=== PATIENT | female | born 1985 | race Caucasian/White ===

== ENCOUNTER 2022-05-30 09:29 | Emergency (ER) | payer OTHER, SELFPAY ==
[2022-05-30 09:46] VITALS: BP 122/87; PULSE 98; RESP 18; TEMP 36.6; O2SAT 98; BMI 24.0
[2022-05-30 10:01] VITALS: BP 135/88; PULSE 75; RESP 15; O2SAT 100
--- OUTSIDE RECORDS SUMMARY | 2022-05-30 10:08 | XMS_ITS | Continuity of Care Document ---
:1985 Author Organization [facility] Address [address] [place] [address]- Care Team Providers Name Role Phone Not on Staff, PCP Primary Care Physician Unavailable [place] [facility] [place]06[place] - 08/13/[address] [id number] Attending Physician: Pat Dumont PsyD Admitting Physician: Pat Dumont PsyD Allergies, Adverse Reactions, Alerts No Known Allergies Medications capsaicin 0.025% topical cream 1 application, Topically, 2 times a day, PRN Pain , Mild, # 60 Gm, 1 Refills, Maintenance, 08/01/21 11:43:00 EDT, Cream, [facility] #[id number], Partial fill upon patient request if the prescription is for a schedule II opioid drug., 1 applicatio... Start Date: 08/01/21 Status: Orderednaproxen 500 mg oral tablet 1 tablet = 500 mg, By Mouth, 2 times a day, PRN Pain , Mild, # 60 tablet, 1 Refills, Maintenance, 08/01/21 11:42:00 EDT, Tablet, [facility] #[id number], Partial fill upon patient request if the prescription is for a schedule II opioid drug., 160.... Start Date: 08/01/21 Status: Ordered Problem List Condition Effective Dates Status Health Status Informant Cervical incompetence(Confirmed) Active History of delivery(Confirmed) Active Threatened (Confirmed) Active Social History Social History Type Response Smoking Status Never (less than 100 in life time) entered on: 08/01/21 Sex
--- OUTSIDE RECORDS SUMMARY | 2022-05-30 10:09 | XMS_ITS | Continuity of Care Document ---
:1985 Author Organization [facility] Address [address] [place] [address]- Care Team Providers Name Role Phone Not on Staff, PCP Primary Care Physician Unavailable Encounter [facility] Date(s): 06/30/19 - 06/30/[address] [address]- [facility] Attending Physician: José Luis Castillo MD Allergies, Adverse Reactions, Alerts Substance Reaction Severity Status NKA Active Medications amoxicillin-clavulanate 500 mg-125 mg oral tablet By Mouth, Every 8 hours, 0 Refills, Maintenance, 01/27/19 1:28:53 EDT Start Date: 01/27/19 Status: OrderedColace sodium 100 mg oral capsule 100 mg, 1, capsule, By Mouth, 2 times a day, PRN, # 30 capsule, Refills 2, Tot. Refills 2, Maintenance, for constipation, 11/04/15 21:10:49, Route to Pharmacy Electronically, [id number], [facility] [id number] Start Date: 11/04/15 Status: Orderedferrous sulfate 325 mg oral tablet 1 tablet = 325 mg, By Mouth, 3 times a day, # 270 tablet, 0 Refills, Maintenance, 09/30/15 0:09:05, Tablet Start Date: 09/30/15 Status: Orderedibuprofen 600 mg oral tablet 600 mg, 1, tablet, By Mouth, Every 6 hours, # 30 tablet, Refills 0, Tot. Refills 0, Maintenance, 06/24/17 13:24:44, Print Requisition Start Date: 06/24/17 Status: Orderedindocin 25mg q6h prn indocin 25mg q6h prn, See Instructions, # 10 tablet, Refills 0, Tot. Refills 0, Maintenance, to takeas needed for contractions, 10/20/15 10:37:20, Compound Start Date: 10/20/15 Status: OrderedPrenatal Multivitamins By Mouth, Daily, 0 Refills, Maintenance, 09/30/15 0:09:18 Start Date: 09/30/15 Status: OrderedPrometrium 200 mg oral capsule 1 capsule = 200 mg, By Mouth, Daily, # 10 capsule, 0 Refills, Maintenance, 05/20/19 9:03:00 EST, Capsule Start Date: 05/20/19 Stop Date: 05/30/19 Status: Orderedsee special instructions see special instructions, See Instructions, # 10 tablet, Refills 0, Tot. Refills 0, Maintenance, 25 mg By Mouth every 6 hours prn for contractions, 10/20/15 10:33:58, Compound Start Date: 10/20/15 Status: OrderedVitamin D 82226 iu oral capsule 50,000 International_Units, 1, capsule, By Mouth, Every week, Refills 0, Maintenance, 09/30/15 0:08:34 Start Date: 09/30/15 Status: Ordered Problem List Condition Effective Dates Status Health Status Informant Cervical incompetence(Confirmed) Active History of delivery(Confirmed) Active Threatened (Confirmed) Active Social History Social History Type Response Smoking Status Never smoker entered on: 07/01/15 Sex
--- OUTSIDE RECORDS SUMMARY | 2022-05-30 10:09 | XMS_ITS | Continuity of Care Document ---
:1985 Author Organization [facility] Address [address] [place] [address]- Care Team Providers Name Role Phone Not on Staff, PCP Primary Care Physician Unavailable Encounter [facility] Date(s): 08/08/19 - 08/08/[address] [address]- [facility] Discharge Disposition: A-D/C Home Attending Physician: José Luis Castillo MD Admitting Physician: José Luis Castillo MD Referring Physician: José Luis Castillo MD Allergies, Adverse Reactions, Alerts Substance Reaction Severity Status NKA Active Medications amoxicillin-clavulanate 500 mg-125 mg oral tablet By Mouth, Every 8 hours, 0 Refills, Maintenance, 01/27/19 1:28:53 EDT Start Date: 01/27/19 Status: OrderedAugmentin 250 mg-62.5 mg/5 ml oral powder for reconstitution 10 mL, By Mouth, Every 8 hours, # 210 mL, 0 Refills, Maintenance, 07/01/19 9:03:00 EST, REC Powder, [facility] #[id number], 160, cm, 06/28/19 18:21:00 EST, Height, 63.3, kg, 04/07/19 11:54:00 EST,Dry Weight Start Date: 07/01/19 Stop Date: 07/08/19 Status: OrderedColace sodium 100 mg oral capsule 100 mg, 1, capsule, By Mouth, 2 times a day, PRN, # 30 capsule, Refills 2, Tot. Refills 2, Maintenance, for constipation, 11/04/15 21:10:49, Route to Pharmacy Electronically, [id number], [facility] [address] Start Date: 11/04/15 Status: Orderedferrous sulfate 325 [...] Compound Start Date: 10/20/15 Status: OrderedVitamin D 66726 iu oral capsule 50,000 International_Units, 1, capsule, By Mouth, Every week, Refills 0, Maintenance, 09/30/15 0:08:34 Start Date: 09/30/15 Status: Ordered Problem List Condition Effective Dates Status Health Status Informant Cervical incompetence(Confirmed) Active History of delivery(Confirmed) Active Threatened (Confirmed) Active Vital Signs Most recent to oldest [Reference Range]: 1 Height 160 cm (08/08/19 7:40 AM) Weight 74.3 kg (08/08/19 7:40 AM) Pulse Rate [55-90 bpm] 98 bpm *H* (08/08/19 7:40 AM) Body Mass Index [18.5-24.99] 29.02 *H* (08/08/19 7:40 AM) Blood Pressure [90-138/55-84 mm Hg] 120/84 mm Hg (08/08/19 7:40 AM) Respiratory Rate [16-30 br/min] 18 br/min (08/08/19 7:40 AM) Temperature [96.8-100.4 DegF] 98.1 DegF (08/08/19 7:40 AM) Blood pressure sites Arm, right (08/08/19 7:40 AM) Temperature Route Oral (08/08/19 7:40 AM) Dry Weight 74.3 kg (08/08/19 7:40 AM) Social History Social History Type Response Smoking Status Never smoker entered on: 07/01/15 Sex
--- OUTSIDE RECORDS SUMMARY | 2022-05-30 10:10 | XMS_ITS | Continuity of Care Document ---
:1985 Author Organization [facility] Address [address] [place] [address]- Care Team Providers Name Role Phone Calvin Camejo MD Primary Care Physician Encounter [facility] [place] Date(s): 08/20/21 - 09/19/[address] [address] Attending Physician: Jose Garcia Admitting Physician: Jose Garcia Referring Physician: Admtr, Ar8 Allergies, Adverse Reactions, Alerts No Known Allergies Immunizations Given and Recorded Vaccine Date Status Refusal Reason SARS-CoV-2 (COVID-19) mRNA-1273 vaccine 06/27/21 Recorded SARS-CoV-2 (COVID-19) mRNA-1273 vaccine 12/29/20 Recorded SARS-CoV-2 (COVID-19) mRNA-1273 vaccine 12/01/20 Recorded Medications capsaicin 0.025% topical cream 1 application, Topically, 2 times a day, PRN Pain , Mild, # 60 Gm, 1 Refills, Maintenance, 08/01/21 11:43:00 EDT, Cream, [facility] #[id number], Partial fill upon patient request if the prescription is for a schedule II opioid drug., 1 applicatio... Start Date: 08/01/21 Status: Orderedferrous sulfate 325 mg oral tablet 1 tablet = 325 mg, By Mouth, Daily, # 90 tablet, 0 Refills, Maintenance, 08/30/21 16:21:00 EDT, Tablet, [facility] #[id number], Partial fill upon patient request if the prescription is for a schedule II opioid drug., 160.02, cm, 08/29/21 13:52:00... Start Date: 08/30/21 Status: Orderedlidocaine 4% topical film 1 patch, Topically, 4 times a day, # 6 each, 1 Refills, Acute 08/28/22 14:35:00 EDT, 08/29/21 14:35:00 EDT, Film, [facility] #[id number], Partial fill upon patient request if the prescription is for a schedule II opioid drug., 1 patch Topically 4... Start Date: 08/29/21 Stop Date: 08/28/22 Status: Orderednaproxen 500 mg oral tablet 1 tablet = 500 mg, By Mouth, 2 times a day, PRN Pain , Mild, # 60 tablet, 1 Refills, Maintenance, 08/01/21 11:42:00 EDT, Tablet, [facility] #[id number], Partial fill upon patient request if the prescription is for a schedule II opioid drug., 160.... Start Date: 08/01/21 Status: OrderedTylenol Extra Strength 500 mg oral tablet 2 tablet = 1,000 mg, By Mouth, Every 6 hours, PRN for pain, # 120 tablet, 1 Refills, Acute 08/30/22 14:36:00 EDT, 08/29/21 14:36:00 EDT, Tablet, [facility] #[id number], Partial fill upon patient request if the prescription is for a schedule II op... Start Date: 08/29/21 Stop Date: 08/30/22 Status: OrderedVitamin D3 50,000 intl units oral capsule 1 capsule = 1,250 mcg, By Mouth, Every week, # 12 capsule, 0 Refills, Maintenance, 08/30/21 16:21:00EDT, Capsule, [facility] #[id number], Partial fill upon patient request if the prescription is for a schedule II opioid drug., 160.02, cm, ... Start Date: 08/30/21 Status: Ordered Problem List Condition Effective Dates Status Health Status Informant Cervical incompetence(Confirmed) Active History of delivery(Confirmed) Active Threatened (Confirmed) Active Social History Social History Type Response Smoking Status Never (less than 100 in life time) entered on: 08/01/21 Sex
--- OUTSIDE RECORDS SUMMARY | 2022-05-30 10:11 | XMS_ITS | Continuity of Care Document ---
:1985 Author Organization [facility] Address [address] [place] [address]- Care Team Providers Name Role Phone Not on Staff, PCP Primary Care Physician Unavailable Encounter [facility] Date(s): 08/11/19 - 08/11/[address] [address]- [facility] Discharge Disposition: A-D/C Home Attending Physician: José [...] Refills, Maintenance, 07/01/19 9:03:00 EST, REC Powder, [facility] #[id number], 160, cm, 06/28/19 18:21:00 EST, Height, 63.3, kg, 04/07/19 11:54:00 EST,Dry Weight Start Date: 07/01/19 Stop Date: 07/08/19 Status: OrderedColace sodium 100 mg oral capsule 100 mg, 1, capsule, By Mouth, 2 times a day, PRN, # 30 capsule, Refills 2, Tot. Refills 2, Maintenance, for constipation, 11/04/15 21:10:49, Route to Pharmacy Electronically, [id number], [facility] [id number] Start Date: 11/04/15 Status: Orderedferrous sulfate 325 [...] Compound Start Date: 10/20/15 Status: OrderedVitamin D 90426 iu oral capsule 50,000 International_Units, 1, capsule, By Mouth, Every week, Refills 0, Maintenance, 09/30/15 0:08:34 Start Date: 09/30/15 Status: Ordered Problem List Condition Effective Dates Status Health Status Informant Cervical incompetence(Confirmed) Active History of delivery(Confirmed) Active Threatened (Confirmed) Active Vital Signs Most recent to oldest [Reference Range]: 1 Height 160 cm (08/11/19 11:04 AM) Pulse Rate [55-90 bpm] 69 bpm (08/11/19 11:04 AM) Blood Pressure [90-138/55-84 mm Hg] 128/80 mm Hg (08/11/19 11:04 AM) Respiratory Rate [16-30 br/min] 16 br/min (08/11/19 11:04 AM) Temperature [96.8-100.4 DegF] 98.0 DegF (08/11/19 11:04 AM) Blood pressure sites Arm, right (08/11/19 11:04 AM) Temperature Route Oral (08/11/19 11:04 AM) Social History Social History Type Response Smoking Status Never smoker entered on: 07/01/15 Sex
--- OUTSIDE RECORDS SUMMARY | 2022-05-30 10:12 | XMS_ITS | Continuity of Care Document ---
:1985 Author Organization [facility] Address [address] [place] [address]- Care Team Providers Name Role Phone Calvin Camejo MD Primary Care Physician Encounter [facility] [place] Date(s): 09/05/21 - 10/11/[address] [address] Attending Physician: Mansi Rausch MD Admitting Physician: Mansi Rausch MD Referring Physician: Mansi Rausch MD Allergies, Adverse Reactions, Alerts No Known Allergies Immunizations Given and Recorded Vaccine Date Status Refusal Reason SARS-CoV-2 (COVID-19) mRNA-1273 vaccine 06/27/21 Recorded SARS-CoV-2 (COVID-19) mRNA-1273 vaccine 12/29/20 Recorded SARS-CoV-2 (COVID-19) mRNA-1273 vaccine 12/01/20 Recorded Medications capsaicin 0.025% topical cream 1 application, Topically, 2 times a day, PRN Pain , Mild, # 60 Gm, 1 Refills, Maintenance, 08/01/21 11:43:00 EDT, Cream, [facility] #[id number], Partial fill upon patient request if the prescription is for a schedule II opioid drug., 1 applicatio... Start Date: 08/01/21 Status: Orderedferrous sulfate 325 mg oral tablet 1 tablet = 325 mg, By Mouth, Daily, # 90 tablet, 0 Refills, Maintenance, 08/30/21 16:21:00 EDT, Tablet, [facility] #[id number], Partial fill upon patient request if the prescription is for a schedule II opioid drug., 160.02, cm, 08/29/21 13:52:00... Start Date: 08/30/21 Status: Orderedlidocaine 4% topical film 1 patch, Topically, 4 times a day, # 6 each, 1 Refills, Acute 08/28/22 14:35:00 EDT, 08/29/21 14:35:00 EDT, Film, [facility] #[id number], Partial fill upon patient request if the prescription is for a schedule II opioid drug., 1 patch Topically 4... Start Date: 08/29/21 Stop Date: 08/28/22 Status: Orderednaproxen 500 mg oral tablet 1 tablet = 500 mg, By Mouth, 2 times a day, PRN Pain , Mild, # 60 tablet, 1 Refills, Maintenance, 08/01/21 11:42:00 EDT, Tablet, [facility] #[id number], Partial fill upon patient request if the prescription is for a schedule II opioid drug., 160.... Start Date: 08/01/21 Status: OrderedTylenol Extra Strength 500 mg oral tablet 2 tablet = 1,000 mg, By Mouth, Every 6 hours, PRN for pain, # 120 tablet, 1 Refills, Acute 08/30/22 14:36:00 EDT, 08/29/21 14:36:00 EDT, Tablet, [facility] #[id number], Partial fill upon patient request if the prescription is for a schedule II op... Start Date: 08/29/21 Stop Date: 08/30/22 Status: OrderedVitamin D3 50,000 intl units oral capsule 1 capsule = 1,250 mcg, By Mouth, Every week, # 12 capsule, 0 Refills, Maintenance, 08/30/21 16:21:00EDT, Capsule, [facility] #[id number], Partial fill upon patient request if the [...]
--- OUTSIDE RECORDS SUMMARY | 2022-05-30 10:12 | XMS_ITS | Continuity of Care Document ---
:1985 Author Organization [facility] Address [address] [address]- Care Team Providers Name Role Phone Not on Staff, PCP Primary Care Physician Unavailable Encounter [facility] [place] Date(s): 07/30/21 - 08/06/[address] [address] Attending Physician: Pat Dumont PsyD Admitting Physician: Pat Dumont PsyD Allergies, Adverse Reactions, Alerts No Known Allergies Medications capsaicin 0.025% topical cream 1 application, Topically, 2 times a day, PRN Pain , Mild, # 60 Gm, 1 Refills, Maintenance, 08/01/21 11:43:00 EDT, Cream, [facility] #[id number], Partial fill upon patient request if the prescription is for a schedule II opioid drug., 1 applicatio... Start Date: 08/01/21 Status: Orderedhydrocortisone 1% topical cream 1 application, Topically, 2 times a day, for 7 days, # 60 Gm, 0 Refills, Acute 08/08/21 11:46:00 EDT, 08/01/21 11:46:00 EDT, Cream, [facility] #[id number], Partial fill upon patient request if theprescription is for a schedule II opioid drug., 1... Start Date: 08/01/21 Stop Date: 08/08/21 Status: Orderednaproxen 500 mg oral tablet 1 tablet = 500 mg, By Mouth, 2 times a day, PRN Pain , Mild, # 60 tablet, 1 Refills, Maintenance, 08/01/21 11:42:00 EDT, Tablet, [facility] #[id number], Partial fill upon patient request if the [...]
--- OUTSIDE RECORDS SUMMARY | 2022-05-30 10:13 | XMS_ITS | Continuity of Care Document ---
:1985 Author Organization [facility] Address [address] [place] [address]- Care Team Providers Name Role Phone Not on Staff, PCP Primary Care Physician Unavailable Encounter [facility] [place] Date(s): 10/23/20 - 10/23/20 [facility] [address] [place] [address] Discharge Disposition: A-D/C Home Attending Physician: José Luis Castillo MD Admitting Physician: José Luis Castillo MD Referring Physician: José Luis Castillo MD Allergies, Adverse Reactions, Alerts Substance Reaction Severity Status NKA Active Medications acetaminophen 325 mg oral tablet 650 mg, 2, tablet, By Mouth, Every 4 hours, PRN, # 60 tablet, Refills 0, Tot. Refills 0, Maintenance, as needed for pain, 10/23/20 13:45:00 EDT, Route to Pharmacy Electronically, [facility] #[id number], Partial fill upon patient request if the pr... Start Date: 10/23/20 Status: Orderedibuprofen 800 mg oral tablet 800 mg, 1, tablet, By Mouth, 3 times a day, PRN, # 30 tablet, Refills 0, Tot. Refills 0, Maintenance, for pain, 10/23/20 13:45:00 EDT, Route to Pharmacy Electronically, [facility] #[id number], Partial fill upon patient request if the prescription... Start Date: 10/23/20 Status: OrderedoxyCODONE 5 mg oral tablet 5 mg, 1, tablet, By Mouth, Every 6 hours, PRN, # 10 tablet, Refills 0, Tot. Refills 0, Maintenance, as needed for pain, 10/23/20 13:45:00 EDT, Route to Pharmacy Electronically, [facility] #[id number], Partial fill upon patient request, 160.02, cm... Start Date: 10/23/20 Status: Ordered Problem List Condition Effective Dates Status Health Status Informant Cervical incompetence(Confirmed) Active History of delivery(Confirmed) Active Threatened (Confirmed) Active Vital Signs Most recent to oldest 1 2 3 [Reference Range]: Height 160.02 cm 160.02 cm (10/23/20 11:01 AM) (10/12/20 11:14 AM) Weight 61 kg 62.27 kg (10/23/20 11:01 AM) (10/12/20 11:14 AM) Oxygen Saturation [94-100 99 % 99 % 99 % %] (10/23/20 4:00 PM) (10/23/20 3:45 PM) (10/23/20 3:3 0 PM) Pulse Rate [55-90 bpm] 66 bpm (10/23/20 11:01 AM) Body Mass Index 23.82 24.32 [18.5-24.99] (10/23/20 11:01 AM) (10/12/20 11:14 AM) Blood Pressure 138/97 mm Hg 146/107 mm Hg 131/94 mm Hg [90-138/55-84 mm Hg] (10/23/20 3:45 PM) *H* (10/23/20 3:15 PM) (10/23/20 3:30 PM) Respiratory Rate [16-30 17 br/min 18 br/min 13 br/mi n br/min] (10/23/20 3:45 PM) (10/23/20 3:30 PM) *L* (10/23/20 3:15 PM ) Temperature [96.8-100.4 97.2 DegF 98.5 DegF DegF] (10/23/20 2:45 PM) (10/23/20 11:01 AM) Liters per Minute 5 L/min 5 L/min 5 L/min (10/23/20 3:15 PM) (10/23/20 3:00 PM) (10/23/20 2:4 5 PM) Mode of Delivery (Oxygen) Room air Room air Simple face mask (10/23/20 3:45 PM) (10/23/20 3:30 PM) (10/23/20 3:1 5 PM) Blood pressure sites Arm, right Arm, right Arm, right (10/23/20 3:45 PM) (10/23/20 3:30 PM) (10/23/20 3:1 5 PM) Temperature Route Temporal Temporal (10/23/20 2:45 PM) (10/23/20 11:01 AM) Dry Weight 62.27 kg (10/12/20 11:14 AM) Weight Obtained Via Patient/family stated (10/12/20 11:14 AM) Dry Weight Obtained Via Patient/family stated (10/12/20 11:14 AM) Social History Social History Type Response Smoking Status Never smoker entered on: 07/01/15 Sex
--- OUTSIDE RECORDS SUMMARY | 2022-05-30 10:13 | XMS_ITS | Continuity of Care Document ---
:1985 Author Organization [address] [address]- Care Team Providers Name Role Phone Calvin Camejo MD Primary Care Physician [place] [facility] [place] - 11/02/[address] [address] Attending Physician: AdmJose bloom Admitting Physician: AdmtrJose Referring Physician: Admtr, Ar8 Allergies, Adverse Reactions, [...] 1 Refills, Maintenance, 08/01/21 11:43:00 EDT, Cream, [facility] #[id number], Partial fill upon patient request if the prescription is for a schedule II opioid drug., 1 applicatio... Start Date: 08/01/21 Status: Orderedferrous sulfate 325 mg oral tablet 1 tablet = 325 mg, By Mouth, Daily, # 90 tablet, 0 Refills, Maintenance, 08/30/21 16:21:00 EDT, Tablet, [facility] #[id number], Partial fill upon patient request if the prescription is for a schedule II opioid drug., 160.02, cm, 08/29/21 13:52:00... Start Date: 08/30/21 Status: Orderedlidocaine 4% topical film 1 patch, Topically, 4 times a day, # 6 each, 1 Refills, Acute 08/28/22 14:35:00 EDT, 08/29/21 14:35:00 EDT, Film, [facility] #[id number], Partial fill upon patient request if the prescription is for a schedule II opioid drug., 1 patch Topically 4... Start Date: 08/29/21 Stop Date: 08/28/22 Status: Orderednaproxen 500 mg oral tablet 1 tablet = 500 mg, By Mouth, 2 times a day, PRN Pain , Mild, # 60 tablet, 1 Refills, Maintenance, 08/01/21 11:42:00 EDT, Tablet, [facility] #[id number], Partial fill upon patient request if the prescription is for a schedule II opioid drug., 160.... Start Date: 08/01/21 Status: OrderedTylenol Extra Strength 500 mg oral tablet 2 tablet = 1,000 mg, By Mouth, Every 6 hours, PRN for pain, # 120 tablet, 1 Refills, Acute 08/30/22 14:36:00 EDT, 08/29/21 14:36:00 EDT, Tablet, [facility] #[id number], Partial fill upon patient request if the prescription is for a schedule II op... Start Date: 08/29/21 Stop Date: 08/30/22 Status: OrderedVitamin D3 50,000 intl units oral capsule 1 capsule = 1,250 mcg, By Mouth, Every week, # 12 capsule, 0 Refills, Maintenance, 08/30/21 16:21:00EDT, Capsule, [facility] #[id number], Partial fill upon patient request if the [...]
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
--- OUTSIDE RECORDS SUMMARY | 2022-05-30 10:15 | XMS_ITS | Continuity of Care Document ---
:1985 Author Organization [facility] Address [address] [place] [address]- Care Team Providers Name Role Phone Calvin Camejo MD Primary Care Physician Encounter [facility] [place] Date(s): 08/13/21 - 09/19/[address] [address] Attending Physician: Pat Dumont PsyD Admitting Physician: [...] 1 Refills, Maintenance, 08/01/21 11:43:00 EDT, Cream, [facility] #[id number], Partial fill upon patient request if the prescription is for a schedule II opioid drug., 1 applicatio... Start Date: 08/01/21 Status: Orderedferrous sulfate 325 mg oral tablet 1 tablet = 325 mg, By Mouth, Daily, # 90 tablet, 0 Refills, Maintenance, 08/30/21 16:21:00 EDT, Tablet, [facility] #[id number], Partial fill upon patient request if the prescription is for a schedule II opioid drug., 160.02, cm, 08/29/21 13:52:00... Start Date: 08/30/21 Status: Orderedlidocaine 4% topical film 1 patch, Topically, 4 times a day, # 6 each, 1 Refills, Acute 08/28/22 14:35:00 EDT, 08/29/21 14:35:00 EDT, Film, [facility] #[id number], Partial fill upon patient request if the prescription is for a schedule II opioid drug., 1 patch Topically 4... Start Date: 08/29/21 Stop Date: 08/28/22 Status: Orderednaproxen 500 mg oral tablet 1 tablet = 500 mg, By Mouth, 2 times a day, PRN Pain , Mild, # 60 tablet, 1 Refills, Maintenance, 08/01/21 11:42:00 EDT, Tablet, [facility] #[id number], Partial fill upon patient request if the prescription is for a schedule II opioid drug., 160.... Start Date: 08/01/21 Status: OrderedTylenol Extra Strength 500 mg oral tablet 2 tablet = 1,000 mg, By Mouth, Every 6 hours, PRN for pain, # 120 tablet, 1 Refills, Acute 08/30/22 14:36:00 EDT, 08/29/21 14:36:00 EDT, Tablet, [facility] #[id number], Partial fill upon patient request if the prescription is for a schedule II op... Start Date: 08/29/21 Stop Date: 08/30/22 Status: OrderedVitamin D3 50,000 intl units oral capsule 1 capsule = 1,250 mcg, By Mouth, Every week, # 12 capsule, 0 Refills, Maintenance, 08/30/21 16:21:00EDT, Capsule, [facility] #[id number], Partial fill upon patient request if the [...]
--- OUTSIDE RECORDS SUMMARY | 2022-05-30 10:15 | XMS_ITS | Continuity of Care Document ---
:1985 Author Organization [facility] Address [address] [place] [address]- Care Team Providers Name Role Phone Not on Staff, PCP Primary Care Physician Unavailable [place] [facility] [place] 12/25/[place] - 02/18/[address] [address]- [facility] Attending Physician: José Luis Castillo MD Admitting Physician: José Luis Castillo MD Allergies, Adverse [...] Refills, Maintenance, 07/01/19 9:03:00 EST, REC Powder, [facility] #[id number], 160, cm, 06/28/19 18:21:00 EST, Height, 63.3, kg, 04/07/19 11:54:00 EST,Dry Weight Start Date: 07/01/19 Stop Date: 07/08/19 Status: OrderedColace sodium 100 mg oral capsule 100 mg, 1, capsule, By Mouth, 2 times a day, PRN, # 30 capsule, Refills 2, Tot. Refills 2, Maintenance, for constipation, 11/04/15 21:10:49, Route to Pharmacy Electronically, [id number], [facility] [id number] Start Date: 11/04/15 Status: Orderedferrous sulfate 325 [...] Compound Start Date: 10/20/15 Status: OrderedVitamin D 89313 iu oral capsule 50,000 International_Units, 1, capsule, By Mouth, Every week, Refills 0, Maintenance, 09/30/15 0:08:34 Start Date: 09/30/15 Status: Ordered Problem List Condition Effective Dates Status Health Status Informant Cervical incompetence(Confirmed) Active History of delivery(Confirmed) Active Threatened (Confirmed) Active Social History Social History Type Response Smoking Status Never smoker entered on: 07/01/15 Sex
--- OUTSIDE RECORDS SUMMARY | 2022-05-30 10:17 | XMS_ITS | Continuity of Care Document ---
:1985 Author Organization [facility] Address [address] [place] [address]- Care Team Providers Name Role Phone Calvin Camejo MD Primary Care Physician Encounter [facility] [place] Date(s): 11/05/21 - 12/05/21 [facility] [address] [place] [id number] Attending Physician: Jose Garcia Admitting Physician: Jose Garcia Referring Physician: AdmtrJose Allergies, Adverse Reactions, Alerts No Known Allergies Immunizations Given and Recorded Vaccine Date Status Refusal Reason SARS-CoV-2 (COVID-19) mRNA-1273 vaccine 06/27/21 Recorded SARS-CoV-2 (COVID-19) mRNA-1273 vaccine 12/29/20 Recorded SARS-CoV-2 (COVID-19) mRNA-1273 vaccine 12/01/20 Recorded Medications baclofen 5 mg oral tablet 1 tablet = 5 mg, By Mouth, 3 times a day, Begin taking at nighttime, if tolerated can take up to 3 times a day. Do not operate heavy machinery while taking medication, # 21 tablet, 0 Refills, Maintenance, 11/05/21 18:15:00 EDT, Tablet, [facility] Start Date: 11/05/21 Stop Date: 11/12/21 Status: Orderedcapsaicin 0.025% topical cream 1 application, Topically, 2 times a day, PRN Pain , Mild, # 60 Gm, 1 Refills, Maintenance, 11/05/21 18:14:00 EDT, Cream, [facility] #[id number], Partial fill upon patient request if the prescription is for a schedule II opioid drug., 1 applicatio... Start Date: 11/05/21 Status: Orderedferrous sulfate 325 mg oral tablet 1 tablet = 325 mg, By Mouth, Daily, # 90 tablet, 0 Refills, Maintenance, 08/30/21 16:21:00 EDT, Tablet, [facility] #[id number], Partial fill upon patient request if the prescription is for a schedule II opioid drug., 160.02, cm, 08/29/21 13:52:00... Start Date: 08/30/21 Status: Orderedlidocaine 4% topical film 1 patch, Topically, 4 times a day, # 6 each, 1 Refills, Acute 08/28/22 14:35:00 EDT, 08/29/21 14:35:00 EDT, Film, [facility] #[id number], Partial fill upon patient request if the prescription is for a schedule II opioid drug., 1 patch Topically 4... Start Date: 08/29/21 Stop Date: 08/28/22 Status: Orderednaproxen 500 mg oral tablet 1 tablet = 500 mg, By Mouth, 2 times a day, PRN Pain , Mild, # 60 tablet, 1 Refills, Maintenance, 08/01/21 11:42:00 EDT, Tablet, [facility] #[id number], Partial fill upon patient request if the prescription is for a schedule II opioid drug., 160.... Start Date: 08/01/21 Status: OrderedTylenol Extra Strength 500 mg oral tablet 2 tablet = 1,000 mg, By Mouth, Every 6 hours, PRN for pain, # 120 tablet, 1 Refills, Acute 08/30/22 14:36:00 EDT, 08/29/21 14:36:00 EDT, Tablet, [facility] #[id number], Partial fill upon patient request if the prescription is for a schedule II op... Start Date: 08/29/21 Stop Date: 08/30/22 Status: OrderedVitamin D3 50,000 intl units oral capsule 1 capsule = 1,250 mcg, By Mouth, Every week, # 12 capsule, 0 Refills, Maintenance, 08/30/21 16:21:00EDT, Capsule, [facility] #[id number], Partial fill upon patient request if the [...]
--- OUTSIDE RECORDS SUMMARY | 2022-05-30 10:17 | XMS_ITS | Continuity of Care Document ---
:1985 Author Organization [facility] Address [address] [place] [address]- Care Team Providers Name Role Phone Calvin Camejo MD Primary Care Physician [place] [facility] [place] [id number] Date(s): 08/15/21 - 09/14/[address] [address]- Attending Physician: Jose Garcia Admitting Physician: AdmtrJose Referring Physician: Admtr, Ar8 [...] 1 Refills, Maintenance, 08/01/21 11:43:00 EDT, Cream, [facility] #[id number], Partial fill upon patient request if the prescription is for a schedule II opioid drug., 1 applicatio... Start Date: 08/01/21 Status: Orderedferrous sulfate 325 mg oral tablet 1 tablet = 325 mg, By Mouth, Daily, # 90 tablet, 0 Refills, Maintenance, 08/30/21 16:21:00 EDT, Tablet, [facility] #[id number], Partial fill upon patient request if the prescription is for a schedule II opioid drug., 160.02, cm, 08/29/21 13:52:00... Start Date: 08/30/21 Status: Orderedlidocaine 4% topical film 1 patch, Topically, 4 times a day, # 6 each, 1 Refills, Acute 08/28/22 14:35:00 EDT, 08/29/21 14:35:00 EDT, Film, [facility] #[id number], Partial fill upon patient request if the prescription is for a schedule II opioid drug., 1 patch Topically 4... Start Date: 08/29/21 Stop Date: 08/28/22 Status: Orderednaproxen 500 mg oral tablet 1 tablet = 500 mg, By Mouth, 2 times a day, PRN Pain , Mild, # 60 tablet, 1 Refills, Maintenance, 08/01/21 11:42:00 EDT, Tablet, [facility] #[id number], Partial fill upon patient request if the prescription is for a schedule II opioid drug., 160.... Start Date: 08/01/21 Status: OrderedTylenol Extra Strength 500 mg oral tablet 2 tablet = 1,000 mg, By Mouth, Every 6 hours, PRN for pain, # 120 tablet, 1 Refills, Acute 08/30/22 14:36:00 EDT, 08/29/21 14:36:00 EDT, Tablet, [facility] #[id number], Partial fill upon patient request if the prescription is for a schedule II op... Start Date: 08/29/21 Stop Date: 08/30/22 Status: OrderedVitamin D3 50,000 intl units oral capsule 1 capsule = 1,250 mcg, By Mouth, Every week, # 12 capsule, 0 Refills, Maintenance, 08/30/21 16:21:00EDT, Capsule, [facility] #[id number], Partial fill upon patient request if the [...]
--- OUTSIDE RECORDS SUMMARY | 2022-05-30 10:18 | XMS_ITS | Continuity of Care Document ---
:1985 Author Organization [facility] Address [address] [place] [address]- Care Team Providers Name Role Phone Not on Staff, PCP Primary Care Physician Unavailable [place] [facility] [place] 01/06/20 - 01/06/20 [facility] [address] [place] [address] [facility] Discharge Disposition: A-D/C Home Attending Physician: Suleman Hull MD Admitting Physician: Suleman Hull MD Referring Physician: Not on Staff, Referring MD Allergies, Adverse Reactions, Alerts Substance Reaction Severity Status NKA Active Medications amoxicillin-clavulanate 500 mg-125 mg oral tablet By Mouth, Every 8 hours, 0 Refills, Maintenance, 01/27/19 1:28:53 EDT Start Date: 01/27/19 Status: OrderedAugmentin 250 mg-62.5 mg/5 ml oral powder for reconstitution 10 mL, By Mouth, Every 8 hours, # 210 mL, 0 Refills, Maintenance, 07/01/19 9:03:00 EST, REC Powder, [facility] #[id number], 160, cm, 06/28/19 18:21:00 EST, Height, 63.3, kg, 04/07/19 11:54:00 EST,Dry Weight Start Date: 07/01/19 Stop Date: 07/08/19 Status: OrderedColace sodium 100 mg oral capsule 100 mg, 1, capsule, By Mouth, 2 times a day, PRN, # 30 capsule, Refills 2, Tot. Refills 2, Maintenance, for constipation, 11/04/15 21:10:49, Route to Pharmacy Electronically, [id number], [facility] [id number] Start Date: 11/04/15 Status: Orderedferrous sulfate 325 mg oral tablet 1 tablet = 325 mg, By Mouth, 3 times a day, # 270 tablet, 0 Refills, Maintenance, 09/30/15 0:09:05, Tablet Start Date: 09/30/15 Status: Orderedibuprofen 600 mg oral tablet 600 mg, 1, tablet, By Mouth, 4 times a day, PRN, for 5 days, # 20 tablet, Refills 0, Tot. Refills 0,Acute 01/11/20 19:22:00 EDT, for pain, 01/06/20 19:22:00 EDT, Route to Pharmacy Electronically, [facility] #[id number], 163, cm, 08/24/19 9:16:00... Start Date: 01/06/20 Stop Date: 01/11/20 Status: Orderedibuprofen 600 mg oral tablet 600 mg, 1, tablet, By Mouth, Every 6 hours, # 30 tablet, Refills 0, Tot. Refills 0, Maintenance, 06/24/17 13:24:44, Print Requisition Start Date: 06/24/17 Status: Orderedindocin 25mg q6h prn indocin 25mg q6h prn, See Instructions, # 10 tablet, Refills 0, Tot. Refills 0, Maintenance, to takeas needed for contractions, 10/20/15 10:37:20, Compound Start Date: 10/20/15 Status: OrderedKeflex monohydrate 500 mg oral capsule 1 capsule = 500 mg, By Mouth, Every 12 hours, for 7 days, # 14 capsule, 0 Refills, Acute 01/13/20 19:23:00 EDT, 01/06/20 19:23:00 EDT, Capsule, [facility] #[id number], 163, cm, 08/24/19 9:16:00 EDT, Height, 75.9, kg, 08/23/19 15:14:00 EDT, Dry We... Start Date: 01/06/20 Stop Date: 01/13/20 Status: OrderedPrenatal Multivitamins By Mouth, Daily, 0 [...] Compound Start Date: 10/20/15 Status: OrderedVitamin D 37504 iu oral capsule 50,000 International_Units, 1, capsule, By Mouth, Every week, Refills 0, Maintenance, 09/30/15 0:08:34 Start Date: 09/30/15 Status: Ordered Problem List Condition Effective Dates Status Health Status Informant Cervical incompetence(Confirmed) Active History of delivery(Confirmed) Active Threatened (Confirmed) Active Results Orders for Microbiology Reports Name Date Wet Prep 01/06/20 Urine Culture (URINE CULTURE) 01/06/20 Microbiology Reports TEST:Wet Prep STATUS:Auth (Verified) BODY SITE: SOURCE:VAGINA COLLECTED DATE/TIME:01/06/20 6:21 PMWet Prep SPECIMEN DESCRIPTION : VAGINAL SPECIMEN SPECIAL REQUESTS : NONE DIRECT EXAM : NO TRICHOMONAS,YEAST,OR CLUE CELLS OBSERVED REPORT STATUS : FINAL 01/06/2020TEST:Urine Culture STATUS:Unauthenticated BODY SITE: SOURCE:URINE COLLECTED DATE/TIME:01/06/20 2:05 PMUrine Culture SPECIMEN DESCRIPTION : URINE CLEAN CATCH/MIDSTREAM SPECIAL REQUESTS : NONE Reflexed from [id number] REPORT STATUS : PRELIMINARY REPORT Vital Signs Most recent to oldest 1 2 3 [Reference Range]: Oxygen Saturation [94-100 %] 100 % 96 % 98 % (01/06/20 7:38 PM) (01/06/20 4:00 PM) (01/06/20 2:4 2 PM) Pulse Rate [55-90 bpm] 62 bpm 61 bpm 87 bpm (01/06/20 7:38 PM) (01/06/20 4:00 PM) (01/06/20 2:4 2 PM) Blood Pressure [90-138/55-84 150/95 mm Hg 148/91 mm Hg 145 /92 mm Hg mm Hg] *H* *H* *H* (01/06/20 7:38 PM) (01/06/20 4:00 PM) (01/06/20 2:4 2 PM) Respiratory Rate [16-30 16 br/min 18 br/min 16 br/mi n br/min] (01/06/20 7:38 PM) (01/06/20 4:00 PM) (01/06/20 2:4 2 PM) Temperature [96.8-100.4 DegF] 98.6 DegF 98.5 DegF 98 .7 DegF (01/06/20 7:38 PM) (01/06/20 4:00 PM) (01/06/20 12: 54 PM) Mode of Delivery (Oxygen) Room air Room air Room a ir (01/06/20 7:38 PM) (01/06/20 4:00 PM) (01/06/20 2:4 2 PM) Blood pressure sites Arm, left Arm, right Arm, left (01/06/20 7:38 PM) (01/06/20 4:00 PM) (01/06/20 2:4 2 PM) Temperature Route Oral Oral Oral (01/06/20 7:38 PM) (01/06/20 4:00 PM) (01/06/20 12: 54 PM) Social History Social History Type Response Smoking Status Never smoker entered on: 07/01/15 Sex
--- OUTSIDE RECORDS SUMMARY | 2022-05-30 10:19 | XMS_ITS | Continuity of Care Document ---
:1985 Author Organization [facility] Address [address] [place] [address]- Care Team Providers Name Role Phone Not on Staff, PCP Primary Care Physician Unavailable Encounter [facility] Date(s): 08/20/19 - 08/20/[address] [address]- [facility] Discharge Disposition: A-D/C Home Attending Physician: [...] Refills, Maintenance, 07/01/19 9:03:00 EST, REC Powder, [facility] #[id number], 160, cm, 06/28/19 18:21:00 EST, Height, 63.3, kg, 04/07/19 11:54:00 EST,Dry Weight Start Date: 07/01/19 Stop Date: 07/08/19 Status: OrderedColace sodium 100 mg oral capsule 100 mg, 1, capsule, By Mouth, 2 times a day, PRN, # 30 capsule, Refills 2, Tot. Refills 2, Maintenance, for constipation, 11/04/15 21:10:49, Route to Pharmacy Electronically, [id number], [facility] [id number] Start Date: 11/04/15 Status: Orderedferrous sulfate 325 [...] Compound Start Date: 10/20/15 Status: OrderedVitamin D 39348 iu oral capsule 50,000 International_Units, 1, capsule, By Mouth, Every week, Refills 0, Maintenance, 09/30/15 0:08:34 Start Date: 09/30/15 Status: Ordered Problem List Condition Effective Dates Status Health Status Informant Cervical incompetence(Confirmed) Active History of delivery(Confirmed) Active Threatened (Confirmed) Active Vital Signs Most recent to oldest 1 2 3 [Reference Range]: Weight 74.0 kg (08/20/19 5:55 AM) Oxygen Saturation [94-100 %] 98 % 99 % 99 % (08/20/19 7:39 AM) (08/20/19 7:08 AM) (08/20/19 6:1 5 AM) Pulse Rate [55-90 bpm] 93 bpm *H* (08/20/19 6:00 AM) Blood Pressure [90-138/55-84 mm 126/83 mm Hg 126/86 mm Hg 132/91 mm Hg Hg] (08/20/19 7:39 AM) (08/20/19 7:08 AM) (08/20/19 6:1 5 AM) Respiratory Rate [16-30 br/min] 16 br/min (08/20/19 6:00 AM) Temperature [96.8-100.4 DegF] 97.9 DegF (08/20/19 6:00 AM) Mode of Delivery (Oxygen) Room air (08/20/19 6:00 AM) Blood pressure sites Arm, right Arm, right (08/20/19 6:15 AM) (08/20/19 6:00 AM) Temperature Route Oral (08/20/19 6:00 AM) Dry Weight 74.0 kg (08/20/19 5:55 AM) Social History Social History Type Response Smoking Status Never smoker entered on: 07/01/15 Sex
--- OUTSIDE RECORDS SUMMARY | 2022-05-30 10:19 | XMS_ITS | Continuity of Care Document ---
:[address] [facility] Address [address] [place] [address]- Care Team Providers Name Role Phone Calvin Camejo MD Primary Care Physician Encounter [facility] [place] Date(s): 07/30/21 - 09/14/[address] [address]- Attending Physician: Remigio Foster MD Allergies, Adverse Reactions, Alerts No Known Allergies Immunizations Given and Recorded Vaccine Date Status Refusal Reason SARS-CoV-2 (COVID-19) mRNA-1273 vaccine 06/27/21 Recorded SARS-CoV-2 (COVID-19) mRNA-1273 vaccine 12/29/20 Recorded SARS-CoV-2 (COVID-19) mRNA-1273 vaccine 12/01/20 Recorded Medications capsaicin 0.025% topical cream 1 application, Topically, 2 times a day, PRN Pain , Mild, # 60 Gm, 1 Refills, Maintenance, 08/01/21 11:43:00 EDT, Cream, [facility] #[id number], Partial fill upon patient request if the prescription is for a schedule II opioid drug., 1 applicatio... Start Date: 08/01/21 Status: Orderedferrous sulfate 325 mg oral tablet 1 tablet = 325 mg, By Mouth, Daily, # 90 tablet, 0 Refills, Maintenance, 08/30/21 16:21:00 EDT, Tablet, [facility] #[id number], Partial fill upon patient request if the prescription is for a schedule II opioid drug., 160.02, cm, 08/29/21 13:52:00... Start Date: 08/30/21 Status: Orderedlidocaine 4% topical film 1 patch, Topically, 4 times a day, # 6 each, 1 Refills, Acute 08/28/22 14:35:00 EDT, 08/29/21 14:35:00 EDT, Film, [facility] #[id number], Partial fill upon patient request if the prescription is for a schedule II opioid drug., 1 patch Topically 4... Start Date: 08/29/21 Stop Date: 08/28/22 Status: Orderednaproxen 500 mg oral tablet 1 tablet = 500 mg, By Mouth, 2 times a day, PRN Pain , Mild, # 60 tablet, 1 Refills, Maintenance, 08/01/21 11:42:00 EDT, Tablet, [facility] #[id number], Partial fill upon patient request if the prescription is for a schedule II opioid drug., 160.... Start Date: 08/01/21 Status: OrderedTylenol Extra Strength 500 mg oral tablet 2 tablet = 1,000 mg, By Mouth, Every 6 hours, PRN for pain, # 120 tablet, 1 Refills, Acute 08/30/22 14:36:00 EDT, 08/29/21 14:36:00 EDT, Tablet, [facility] #[id number], Partial fill upon patient request if the prescription is for a schedule II op... Start Date: 08/29/21 Stop Date: 08/30/22 Status: OrderedVitamin D3 50,000 intl units oral capsule 1 capsule = 1,250 mcg, By Mouth, Every week, # 12 capsule, 0 Refills, Maintenance, 08/30/21 16:21:00EDT, Capsule, [facility] #[id number], Partial fill upon patient request if the [...]
[2022-05-30 10:21] LABS: Appearance Urine Turbid; Color Urine Yellow; Glucose Urine UA Negative (Negative); Leukocyte Esterase Urine Large (3+) (Negative); Nitrite Urine Positive (Negative); PH 6.5 (5.0-9.0); Specific Gravity - Urine 1.015 (1.005-1.025); UMIC TRIGGER UACC YES; Urine Blood Moderate (2+) (Negative); Urine Ketones Negative (Negative); Urine Protein 100 (2+) mg/dL (Neg-Trace)
[2022-05-30 10:33] LABS: Bacteria Urine 4+ (None Seen); Hyaline Casts Urine 0-2 /LPF (0-2); Squamous Epithelial Cell Urine 0-2 /HPF (0-2); UACC Culture Trigger YES; WBC Urine >50 /HPF (0-5)
--- NOTE | 2022-05-30 10:44 | ED.FEMALEGU ---
HPI - Female Genitourinary General Chief complaint: Urogenital-Female Stated complaint: lower back pain L side x5 days Time Seen by Provider: 05/30/22 10:41 Source: patient Mode of arrival: ambulatory Limitations: no limitations History of Present Illness HPI Narrative: 37-year-old female presents to the ER for evaluation of right flank pain for the last 5 days along with increased urinary frequency and urgency. She also has some burning upon urination and suprapubic pain. She states the symptoms have been worsening over the last 5 days. She states the back pain is the worst part. She is not nauseous or vomiting. No fever or chills. No vaginal discharge or concern for STI, no new sexual partners. LMP 05/12. MD elicited complaint: dysuria, back pain and flank pain Onset (ago): day(s) (5) Location of symptoms: flank Severity: moderate Female Urogenital Radiation: Suprapubic Severity scale (1-10): 8 Quality of pain: burning, stabbing and aching Consistency: constant and progressively worsening Vaginal discharge: none Vaginal bleeding: none Urinary symptoms: Dysuria, Urgency, Foul Smelling Urine and Flank Pain Exacerbating factors: urination Relieving factors: none Associated symptoms: denies other symptoms Treatment prior to arrival: none Sexual activity: Yes Patient : No Date of Last Menstrual Period: 05/12/22 Related Data Previous Rx's Medication Instructions Recorded levofloxacin 500 mg tablet 500 mg PO DAILY #10 tabs 05/30/22 phenazopyridine 100 mg tablet 100 mg PO TID PRN pain 6 doses #6 05/30/22 (Pyridium) tabs Allergies Allergy/AdvReac Type Severity Reaction Status Date / Time No Known Allergies Allergy Verified 05/30/22 10:48 Review of Systems Review of Systems: Yes all other systems are reviewed and are negative PMFSH Past Medical History Date of Last Menstrual Period: 05/12/22 Social History Social History Advance Directives: No Physical Exam Vital Signs: Vital Signs: Last Vital Signs Temp 98 F 05/30/22 09:46 Pulse 75 05/30/22 10:01 Resp 15 05/30/22 10:01 BP 135/88 05/30/22 10:01 Pulse Ox 100 05/30/22 10:01 O2 Del Method 05/30/22 10:01 BMI result Body Mass Index 24.0 Appearance: Alert. Oriented X3. No acute distress. Eyes: Pupils equal, round and reactive to light. ENT: Pharynx normal. Neck: Normal inspection. Neck supple. CVS: Normal heart rate and rhythm. Pulses normal. Respiratory: No respiratory distress. Breath sounds normal. Abdomen: Soft with mild suprapubic tenderness. No rebound or guarding.+BS x4. +CVA tenderness on the right. Pelvic deferred Skin: Skin warm and dry. Normal skin color. Normal skin turgor. No rashes. Extremities: No lower extremity edema. Neuro: Oriented X 3. grossly normal, nonfocal Course Course Course Narrative: 37-year-old female presents to the ER with urinary symptoms flank pain for the last 5 days. She is afebrile, not tachycardic. She appears well. She does have CVA tenderness on examination. Her urinalysis is consistent with infection. Clinically she has pyelonephritis. She does not appear septic with no fever tachycardia. Will treat with Levaquin for 10 days. We discussed diagnosis and management. We also worked discussed importance of returning if her symptoms were to worsen. Patient expressed understanding and all questions were answered. Stable for discharge home. Medical Decision Making Differential Diagnosis Differential Diagnoses: The differential diagnosis associated with the presentation includes Lower urinary tract infection, pyelonephritis, less likely appendicitis, abscess, diverticulitis, cholecystitis, PID, STI Lab Data MDM Lab Attestation statement: I reviewed the patient's lab results. UA + for infection Labs: Lab Results 05/30/22 Range/Units 10:07 Urine Color Yellow Urine Appearance Turbid Urine pH 6.5 (5.0-9.0) Ur Specific [place] 1.015 (1.005-1.025) Urine Protein 100 (2+) H (Neg-Trace) mg/dL Urine Glucose (UA) Negative (Negative) mg/dL Urine Ketones Negative (Negative) mg/dL Urine Blood Moderate (2+) H (Negative) Urine Nitrite Positive H (Negative) Ur Leukocyte Esterase Large (3+) H (Negative) Urine RBC 3-5 H (0-2) /HPF Urine WBC >50 H (0-5) /HPF Ur Squamous Epith Cells 0-2 (0-2) /HPF Urine Bacteria 4+ (None Seen) Hyaline Casts 0-2 (0-2) /LPF Prescription Management I considered prescription management with: Antibiotic tx for pyelo Critical Care Time Critical Care Time Critical Care Time: No Discharge Plan Discharge Clinical Impression: Pyelonephritis Patient Disposition: Home, Self-Care Instructions: Kidney Infection (ED) Additional Instructions: Take the prescribed antibiotic as directed, do not miss any doses and complete the entire course (even if your symptoms are better) Start taking it tomorrow morning, you were given 1st dose today in the ER. Take the prescribed medication as needed for bladder pain. This can turn your urine orange, that is a normal Side effect. Rest and stay hydrated. Drink plenty of water. Do not have any sexual intercourse until all of your symptoms are completely resolved your treatment is completed. If you develop new or worsening symptoms call 911 or come back to the ER for further evaluation. Prescriptions: New levofloxacin 500 mg tablet 500 mg PO DAILY Qty: 10 0RF phenazopyridine [Pyridium] 100 mg tablet 100 mg PO TID PRN (Reason: pain) Qty: 6 0RF
[2022-05-30] MEDS: levoFLOXacin 750 MG TABLET PO (10:59)
[2022-05-30] MEDS: Phenazopyridine HCL 100 MG TABLET PO (11:00)
== END 2022-05-30 11:07 | disposition home or self-care (01) ==
PROVIDERS: Emergency Provider Emergency Medicine Emergency Medical Services
DX: N12 Tubulo-interstitial nephritis, not specified as acute or chronic (principal); M54.50 Low back pain, unspecified; R30.0 Dysuria; R10.9 Unspecified abdominal pain; Z79.899 Other long term (current) drug therapy
CPT/HCPCS: 81001; 87086; 87088; 87186; 99283; 99284

== ENCOUNTER → 2023-01-23 10:00 | Outpatient (BNVA) | payer OTHER, SELFPAY | PROVIDERS: Visit Provider Physician Assistant Medical | DX: S92.352A Displaced fracture of fifth metatarsal bone, left foot, initial encounter for closed fracture (principal); V89.9XXA Person injured in unspecified vehicle accident, initial encounter | CPT/HCPCS: 29515; 99204 ==

== ENCOUNTER 2023-01-24 10:20 | Outpatient (REF) | payer OTHER, SELFPAY ==
--- NOTE | ~2023-01-24 | XR_ITS ---
EXAMINATION: XR ANKLE, LEFT CLINICAL INFORMATION: Pain in left ankle COMPARISON: None available. TECHNIQUE: AP, lateral, and mortise views of the left ankle. FINDINGS: Mildly displaced fracture of the shaft of the fifth metatarsal is noted. Marked associated soft tissue swelling in this region. No fracture of the distal tibia and/or fibula. The ankle mortise is well-maintained. No ankle joint effusion. XR/XR ankle LT min 3V IMPRESSION: Mildly displaced fracture of the shaft of the fifth metatarsal.
== END 2023-01-24 10:21 | disposition home or self-care (01) ==
LOC: HO.HOSX 10:20
PROVIDERS: Visit Provider Physician Assistant
DX: S92.352A Displaced fracture of fifth metatarsal bone, left foot, initial encounter for closed fracture (principal)
CPT/HCPCS: 73610

== ENCOUNTER 2023-01-24 13:59 | Outpatient (AMB) | payer OTHER, SELFPAY ==
--- NOTE | 2023-01-24 14:10 | A.OFFVIS_ITS ---
Intake Vital Signs 01/24/23 14:14 Height 5 ft 4 in Weight 140 lb BMI 24.0 Intake Visit Reasons: FC- LT 5th Metatarsal fx Intake Note: Cherry a 37 year old female who presents today for an ER follow up of left 5th metatarsal fx, DOI 01/23/23. Patient reports a fall yesterday, she presented to [facility] ED where xrays were taken and placed in a splint. Currently constant pain with a pain level 7 out of 10. Complaints of numbness and tingling. Finds some relief with ibuprofen and oxycodone that was prescribed by ED. Allergies No Known Allergies Allergy (Verified 05/30/22 10:48) HPI FC- LT 5th Metatarsal fx HPI Details 37-year-old female who presents to the [facility] today for an ER follow-up of left 5th metatarsal injury s/p fall, 01/24/23. She was seen at ED where x-rays were performed and she was placed in a splint. She states she has constant pain, numbness and tingling in her 5th toe and rates the pain as 7 on the scale of 0- 10. She finds mild relief with ibuprofen and oxycodone which was prescribed by the ED. 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 Review of Systems Const All systems reviewed & are unremarkable except as noted in HPI and below Physical Exam Vital Signs: BMI result Body Mass Index 24.0 Const General: cooperative, healthy appearing, comfortable, no acute distress, well developed and alert Orientation/consciousness: patient oriented x3 HEENT Head: Yes normal to inspection, Yes normocephalic and Yes atraumatic Eyes General: appearance normal, both eyes and all related structures Resp Effort & Inspection: normal respiratory effort and able to speak in complete sentences Cardio Rate: regular rate Peripheral pulses: Peripheral pulses 2+ throughout GI Palpation (GI): Soft to palpation Skin Lesions: no lesions Rashes: no rashes Neuro General: patient oriented x3 Extrem Other: Left foot: Skin intact. There is some bruising of the lateral edge of the left foot. There is tenderness at the base of the 5th metatarsal. Sensation intact. EHL intact. No pain along the mediolateral malleolus. Neurovascularly intact. Office Procedures Fracture Care Fracture Billing Code: Fracture Billing Code Results Reviewed Results Reviewed: X-rays of the left foot obtained in the office today show a minimally displaced fracture through the left metatarsal shaft. Assessment & Plan Assessment & Plan (1) Fracture of fifth metatarsal bone of left foot: Code(s): S92.352A - Displaced fracture of fifth metatarsal bone, left foot, initial encounter for closed fracture Qualifiers: Encounter type: initial encounter Fracture type: closed Fracture alignment: displaced Qualified Code(s): S92.352A - Displaced fracture of fifth metatarsal bone, left foot, initial encounter for closed fracture Plan She was placed in a off the shelf short walking boot which she will wear when ambulating. She may want to start partial weight bearing since she is significant swollen and tender. I did stress the importance of elevating above heart level and icing. She should continue taking ibuprofen 800 mg three times a day for significant improvement. She also does have oxycodone which was prescribed from the ED. I would like to see her back in 4 weeks, with new x- rays, sooner if needed. She will continue working light duty. Patient Instructions: Scribed for Oliverio Ashford PA-C, by Sloan Jordan biomedical equipment technician, on 01/24/2023 at 2:00 PM EST. IOliverio PA-C, have personally reviewed and agree with the information entered by the scribe. Coding Level of Care Code New Pt Level 3 (78982) Diagnoses Closed displaced fracture of fifth metatarsal bone of left foot, initial encounter S92.352A Encounter type: initial encounter Fracture type: closed Fracture alignment: displaced CPT Codes Fracture Care - Fracture Billing Code: Fracture Billing Code ([id number])
[2023-01-24 14:14] VITALS: BMI 24.0
== END 2023-01-24 14:32 | disposition home or self-care (01) ==
PROVIDERS: Visit Provider Physician Assistant
DX: S92.352A Displaced fracture of fifth metatarsal bone, left foot, initial encounter for closed fracture (principal)
CPT/HCPCS: 99203

== ENCOUNTER 2023-02-11 15:53 | Emergency (ER) | payer OTHER, SELFPAY ==
--- NOTE | ~2023-02-11 | CT_ITS ---
EXAMINATION: CT ABDOMEN AND PELVIS WITHOUT CONTRAST CLINICAL INFORMATION: Abdominal pain. COMPARISON: None available. TECHNIQUE: Multidetector volumetric imaging was performed from the superior aspect of the liver through the pubic symphysis. Sagittal and coronal reformatted images were obtained on the technologist's workstation. This CT examination was performed using dose optimization techniques as appropriate, variously including the following: *Automated exposure control *Adjustment of mA and/or kV according to patient size (this includes techniques or standardized protocols for targeted exams where dose is matched to indication/reason for exam; i.e. extremities or head) *Use of iterative reconstruction technique DLP: 491 mGy-cm FINDINGS: LUNG BASES: The visualized lung bases are unremarkable. LIVER, GALLBLADDER, AND BILIARY TREE: The liver is normal in size, shape, and attenuation. No focal hepatic lesion or biliary ductal dilatation is present. The gallbladder is unremarkable with no evidence of radiopaque gallstones, gallbladder wall thickening, or obvious pericholecystic inflammatory changes. PANCREAS: Unremarkable. SPLEEN: Unremarkable. ADRENAL GLANDS: Unremarkable. KIDNEYS AND URETERS: The kidneys are normal in size, shape, and attenuation. There is a 3 mm calculus upper pole right kidney. There is a 1 parenchymal calculus lower pole right kidney with some apparent associated scarring. BLADDER: Unremarkable. GASTROINTESTINAL TRACT: There is retained stool throughout the colon. The appendix is visualized and is within normal limits. ABDOMINAL WALL: There is a small supraumbilical hernia containing fat. LYMPH NODES: Normal. VASCULAR: Unremarkable. PELVIC VISCERA: The uterus and adnexal regions are within normal limits. There is a small amount of free fluid within the right pelvis. OSSEOUS STRUCTURES: Unremarkable. CT/CT abdomen pelvis wo IV con IMPRESSION: Retained stool throughout the colon. Normal appendix. Nonobstructing right renal calculus. Small amount of free fluid within the pelvis of uncertain significance. Consider recent cyst rupture. Fleischner guidelines were followed.
--- NOTE | ~2023-02-11 | US_ITS ---
EXAMINATION: US PELVIS CLINICAL INFORMATION: Right ovarian pain COMPARISON: None available. TECHNIQUE: Ultrasound of the pelvis is performed using both transabdominal and transvaginal transducers along with Doppler. Transvaginal imaging is performed due to inadequate visualization transabdominally. FINDINGS: Uterus: The uterus is anteverted and measures 8.1 x 3.7 x 4.1 cm. The double wall endometrial thickness is 7 mm. The uterus is smooth in contour and has normal myometrial echogenicity. No visible fibroid. Adnexa: Both ovaries are visualized. There is normal color flow to the adnexa. There is no ovarian torsion. There is a small amount of free fluid present in the cul-de-sac. Right ovary measures 2.9 x 3.3 x 2.5 cm for a volume of 13.0 mL which includes a 2.1 x 1.8 x 1.6 cm simple cyst. Left ovary measures 2.3 x 1.4 x 1.3 cm for a volume of 2.2 mL. US/US pelvic ovarian doppler IMPRESSION: A cause for the patient's right-sided pelvic pain has not been found.
--- NOTE | ~2023-02-11 | US_ITS ---
EXAMINATION: US PELVIS CLINICAL INFORMATION: Right ovarian pain COMPARISON: None available. TECHNIQUE: Ultrasound of the pelvis is performed using both transabdominal and transvaginal transducers along with Doppler. Transvaginal imaging is performed due to inadequate visualization transabdominally. FINDINGS: Uterus: The uterus is anteverted and measures 8.1 x 3.7 x 4.1 cm. The double wall endometrial thickness is 7 mm. The uterus is smooth in contour and has normal myometrial echogenicity. No visible fibroid. Adnexa: Both ovaries are visualized. There is normal color flow to the adnexa. There is no ovarian torsion. There is a small amount of free fluid present in the cul-de-sac. Right ovary measures 2.9 x 3.3 x 2.5 cm for a volume of 13.0 mL which includes a 2.1 x 1.8 x 1.6 cm simple cyst. Left ovary measures 2.3 x 1.4 x 1.3 cm for a volume of 2.2 mL. US/US pelvic and transvaginal IMPRESSION: A cause for the patient's right-sided pelvic pain has not been found.
[2023-02-11 16:31] VITALS: BP 151/84; PULSE 72; RESP 18; TEMP 36.6; O2SAT 100; BMI 23.3
--- NOTE | 2023-02-11 16:32 | ED.GENADULT ---
HPI - General Adult General Chief complaint: Urogenital-Female Stated complaint: R ovary pain Time Seen by Provider: 02/11/23 21:47 Source: patient and family Mode of arrival: ambulatory Limitations: no limitations History of Present Illness HPI narrative: 38-year-old female came in for evaluation of right lower pelvic/abdominal pain for 4 days. Pain is constant for 4 days but waxes and wanes, no clear aggravating factor, no clear relieving factor no nausea, no vomiting, normal bowel movement, no vaginal discharge, patient been having frequency urination with a small amount of blood in the urine, no fever, no chills. No diarrhea last bowel movement was this morning was normal, passing gas. Patient had a history of tubal ligation surgery do not think she is today. Related Data Previous Rx's Medication Instructions Recorded levofloxacin 500 mg tablet 500 mg PO DAILY #10 tabs 05/30/22 phenazopyridine 100 mg tablet 100 mg PO TID PRN pain 6 doses #6 05/30/22 (Pyridium) tabs ibuprofen 800 mg tablet 800 mg PO TID pain swelling #60 01/23/23 tabs oxycodone 5 mg tablet 5 mg PO Q6H PRN pain (scale score 01/23/23 7-10) #10 tabs nitrofurantoin 100 mg PO BID #14 caps 02/12/23 monohydrate/macrocrystals 100 mg capsule (Macrobid) Allergies Allergy/AdvReac Type Severity Reaction Status Date / Time No Known Allergies Allergy Verified 02/11/23 16:31 Review of Systems Review of Systems: All other systems are reviewed and are negative Constitutional: Reports as per HPI and Reports no additional constitutional complaints Eyes: Reports as per HPI and Reports no additional eye complaints Reports system reviewed and no additional complaints, except as documented Cardiovascular: Reports as per HPI and Reports no additional cardiovascular complaints Respiratory: Reports as per HPI and Reports no additional respiratory complaints Gastrointestinal: Reports as per HPI and Reports no additional gastrointestinal complaints Genitourinary: Reports no additional female genitourinary complaints Musculoskeletal: Reports no additional musculoskeletal complaints Skin/Breast: Reports system reviewed and no additional complaints, except as docu Psychiatric: Reports no additional psychiatric complaints Endocrine: Reports no additional endocrine complaints Hematologic/Lymphatic: Reports no additional hematologic/lymphatic complaints Allergic/Immunologic: Reports no additional allergic/immunologic complaints Reports system reviewed and no additional complaints, except as documented and Reports Abnormal speech present [facility] Social History Social History Patient Tobacco Use Status: Never used Tobacco Advance Directives: No Advance Directives Information Provided: No Current occupational status: employed 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 Blood pressure elevated. Heart rate normal. Respiratory rate normal. Temperature normal. Oxygen saturation normal. Appearance: Alert. Oriented X3. No acute distress. Head: Normal external exam. Normocephalic. Atraumatic. No Garcia signs noted. No raccoon eyes noted Eyes: PERRLA. EOMI. Conjunctiva and sclera normal. Eyelids normal. ENT: TM's Normal. Pharynx normal. Uvula midline. Moist mucous membranes. No trismus noted. No drooling noted. No muffled voice noted. Neck: Normal inspection. Neck supple. FROM. No adenopathy. Thyroid Normal. No meningeal signs. No neck mass noted. CVS: Normal heart rate and rhythm. Heart sound normal. No murmurs noted. Pulses normal throughout. Respiratory: No respiratory distress. Painless inspiration. Breath sounds normal. No wheezes/rales/rhonchi noted. Chest nontender. No accessory muscle usage noted or decreased air movement noted. Abdomen: Soft, mild tenderness in the right pelvic/right lower abdominal area with no guarding, no rebound tenderness.. Bowel sounds normal in all 4 quadrants. No distention noted. No organomegaly noted. No visible injury noted. Pelvic exam: Deferred for the ultrasound. Back: No CVA tenderness. Full range of motion noted. Skin: Skin warm and dry. Normal skin color. Normal skin turgor. No rashes/lesions/lacerations noted. Extremities: No lower extremity edema. Extremities exhibit normal range of motion. Extremities nontender. Neuro: Oriented X 3. Cranial nerve exam: II-XII are grossly intact No motor deficit. No sensory deficit. Reflexes normal. Course Course Course Narrative: This is an RME: Additional HPI, ROS, PE not included below will be deferred to primary provider. 30-year-old female presents with right lower quadrant/pelvic pain with associated hematuria urinary frequency, urgency and dysuria times 3 days. No history of kidney stones. However has had a UTI. This feels different. Patient does not think she is Reevaluation(s) Reevaluation #1: Right-sided abdominal/pelvic pain, normal WBCs, CT of the abdomen and pelvis is unremarkable, ultrasound of the ovaries are also unremarkable, patient with symptoms and UA showing UTI will start the patient on Macrobid advised to drink plenty of fluids. Time: 00:19 Medical Decision Making Differential Diagnosis Differential Diagnoses: The differential diagnosis associated with the presentation includes (Acute appendicitis, colitis, ovarian cyst, ovarian torsion, kidney stone, UTI, pyelonephritis, , electrolyte abnormality, severe anemia.) Admission/Observation Consideration of admission/observation: Escalation of care including admission/observation considered Lab Data MDM Lab Attestation statement: I reviewed the patient's lab results. 02/11/23 19:21 02/11/23 19:21 Labs: Lab Results 02/11/23 02/11/23 Range/Units 19:21 21:38 WBC 9.0 (4.8-10.8) X10*3/uL RBC 4.75 (4.20-5.50) X10*6/uL Hgb 12.1 (12.0-16.0) g/dl Hct 38.6 (37.0-47.0) % MCV 81.3 (80.0-98.0) fL MCH 25.5 L (27.0-33.0) pg MCHC 31.3 (31.0-35.0) g/dl RDW 14.4 (11.0-16.0) % Plt Count 292 (160-400) X10*3/uL MPV 10.8 (9.4-12.3) fL Immature Gran % (Auto) 0.3 (0.0-0.4) % Neut % (Auto) 53.1 (45-73) % Lymph % (Auto) 37.1 (20-40) % [place] % (Auto) 6.9 (2-11) % Eos % (Auto) 1.9 (0-4) % Baso % (Auto) 0.7 (0-2) % Lymph # (Auto) 3.3 (1.2-4.9) X10*3/uL [place] # (Auto) 0.6 (0.1-1.2) X10*3/uL Eos # (Auto) 0.2 (0.0-0.4) X10*3/uL Baso # (Auto) 0.1 (0.0-0.2) X10*3/uL Abs Immat Gran (auto) 0.03 (0.00-0.03) X10*3/uL Absolute Neuts (auto) 4.8 (2.0-8.3) x10*3/uL Absolute Nucleated RBC 0.000 (0.0-0.012) X10*3/uL Nucleated RBC % (auto) 0.0 (0.0-0.2) /100WBC Sodium 140 (135-145) mmol/L Potassium 3.4 (3.3-5.1) mmol/L Chloride 106 (96-108) mmol/L Carbon Dioxide 26 (22-29) mmol/L Anion Gap 11 L (12-20) BUN 14 (9-16) mg/dL Creatinine 0.84 (0.5-1.4) mg/dL Estim Creat Clear Calc 81.7 Estimated GFR > 60 Random Glucose 61 (60-115) mg/dL Calcium 9.6 (8.4-10.2) mg/dL Total Bilirubin 0.3 (0.0-1.0) mg/dL AST 14 (5-31) U/L ALT 8 (0-31) U/L Alkaline Phosphatase 78 (39-117) U/L Total Protein 7.9 (6.5-8.0) g/dL Albumin 4.2 (3.5-5.0) g/dL Urine Color Straw Urine Appearance Turbid Urine pH 7.0 (5.0-9.0) Ur Specific [place] 1.025 (1.005-1.025) Urine Protein 300 (3+) H (Neg-Trace) mg/dL Urine Glucose (UA) Negative (Negative) mg/dL Urine Ketones Negative (Negative) mg/dL Urine Blood Large (3+) H (Negative) Urine Nitrite Negative (Negative) Ur Leukocyte Esterase Large (3+) H (Negative) Urine RBC >20 H (0-2) /HPF Urine WBC >50 H (0-5) /HPF Ur Squamous Epith Cells 3-5 (0-2) /HPF Urine Bacteria 4+ (None Seen) Hyaline Casts 11-20 (0-2) /LPF Urine Test NEGATIVE (NEGATIVE) Independent Interpretation I performed an independent interpretation of an: Ultrasound (Ovaries: No acute pathology.) and CT Scan (Abdomen and pelvis: No acute intra-abdominal pathology.) Radiology Impression Discussion of test interpretation with radiology: I have reviewed the radiologist's reading. Discharge Plan Discharge Clinical Impression: Urinary tract infection Patient Disposition: Home, Self-Care Instructions: Urinary Tract Infection in Women (ED) Additional Instructions: Drink plenty of fluids Prescriptions: New nitrofurantoin monohyd/m-cryst [Macrobid] 100 mg capsule 100 mg PO BID Qty: 14 0RF Rx Instructions: must administer with a meal/food No Action levofloxacin 500 mg tablet 500 mg PO DAILY Qty: 10 0RF phenazopyridine [Pyridium] 100 mg tablet 100 mg PO TID PRN (Reason: pain) Qty: 6 0RF ibuprofen 800 mg tablet 800 mg PO TID Qty: 60 0RF oxycodone 5 mg tablet 5 mg PO Q6H PRN (Reason: pain (scale score 7-10)) Qty: 10 0RF Rx Instructions: Partial Fill upon patient request.
[2023-02-11 19:42] LABS: MANUAL DIFF FLAG NO
[2023-02-11 19:46] LABS: Basophils Absolute Auto 0.1 X10*3/uL (0.0-0.2); Basophils Percent Auto 0.7 % (0-2); Eosinophils Absolute Auto 0.2 X10*3/uL (0.0-0.4); Eosinophils Percent Auto 1.9 % (0-4); Hematocrit 38.6 % (37.0-47.0); Hemoglobin 12.1 g/dl (12.0-16.0); Imm Gran Abs Auto 0.03 X10*3/uL (0.00-0.03); Imm Gran Pct Auto 0.3 % (0.0-0.4); Lymphocytes Absolute Auto 3.3 X10*3/uL (1.2-4.9); Lymphocytes Percent Auto 37.1 % (20-40); Mean Corpuscular HGB Conc 31.3 g/dl (31.0-35.0); Mean Corpuscular Hemoglobin 25.5 pg (27.0-33.0); Mean Corpuscular Volume 81.3 fL (80.0-98.0); Mean Platelet Volume 10.8 fL (9.4-12.3); Monocytes Absolute Auto 0.6 X10*3/uL (0.1-1.2); Monocytes Percent Auto 6.9 % (2-11); Neutrophils Absolute Auto 4.8 x10*3/uL (2.0-8.3); Neutrophils Percent Auto 53.1 % (45-73); Platelet Count 292 X10*3/uL (160-400); Red Blood Count 4.75 X10*6/uL (4.20-5.50); Red Cell Distribution Width 14.4 % (11.0-16.0)
[2023-02-11 20:04] LABS: Alanine Aminotransferase 8 U/L (0-31); Albumin Level 4.2 g/dL (3.5-5.0); Alkaline Phosphatase 78 U/L (39-117); Anion Gap 11 (12-20); Aspartate Amino Transferase 14 U/L (5-31); Bilirubin Total 0.3 mg/dL (0.0-1.0); Blood Urea Nitrogen 14 mg/dL (9-16); Calcium 9.6 mg/dL (8.4-10.2); Carbon Dioxide 26 mmol/L (22-29); Chloride 106 mmol/L (96-108); Creatinine Clr Calc Pharmacy 81.7; Estimated Glomerular Filt Rate > 60; Glucose Random 61 mg/dL (60-115); Potassium 3.4 mmol/L (3.3-5.1); Sodium 140 mmol/L (135-145); Total Protein 7.9 g/dL (6.5-8.0)
[2023-02-11 21:25] VITALS: BP 147/90; PULSE 64; RESP 16; TEMP 36.5; O2SAT 100
[2023-02-11 21:58] LABS: UPreg QC Valid YES; Urine Pregnancy NEGATIVE (NEGATIVE)
[2023-02-11 22:50] LABS: Appearance Urine Turbid; Glucose Urine UA Negative (Negative); Leukocyte Esterase Urine Large (3+) (Negative); Nitrite Urine Negative (Negative); Specific Gravity - Urine 1.025 (1.005-1.025); UMIC TRIGGER UACC YES; Urine Blood Large (3+) (Negative); Urine Ketones Negative (Negative); Urine Protein 300 (3+) mg/dL (Neg-Trace)
[2023-02-11 22:51] LABS: Color Urine Straw
[2023-02-11 22:52] LABS: Bacteria Urine 4+ (None Seen); RBC Urine >20 /HPF (0-2); UACC Culture Trigger YES; WBC Urine >50 /HPF (0-5)
[2023-02-12] MEDS: Nitrofurantoin Monohyd/M-Cryst 100 MG CAPSULE PO (00:30)
[2023-02-12 00:36] VITALS: BP 126/74; PULSE 85; RESP 18; TEMP 36.8; O2SAT 98
== END 2023-02-12 00:42 | disposition home or self-care (01) ==
PROVIDERS: Physician Assistant; Emergency Provider Emergency Medicine
DX: N39.0 Urinary tract infection, site not specified (principal); B95.7 Other staphylococcus as the cause of diseases classified elsewhere; Z98.51 Tubal ligation status
CPT/HCPCS: 36415; 74176; 76830; 76856; 80053; 81001; 81003; 81025; 85025; 87086; 87088; 87186; 93975; 99284

== ENCOUNTER 2023-02-24 12:34 | Outpatient (REF) | payer OTHER, SELFPAY ==
--- NOTE | ~2023-02-24 | XR_ITS ---
EXAMINATION: X-RAY LEFT FOOT CLINICAL INFORMATION: Pain left foot COMPARISON: 01/24/2023 TECHNIQUE: 3 views of the left foot FINDINGS: Redemonstration of a nondisplaced, oblique fracture of the distal shaft of the left fifth metatarsal with persistent mild overriding of fracture fragments. Fracture line is still visible, but appears less distinct, suggesting some interval callus formation. XR/XR foot LT min 3V IMPRESSION: Healing oblique fracture of the left fifth metatarsal.
== END 2023-02-24 12:35 | disposition home or self-care (01) ==
LOC: HO.HOSX 12:34
PROVIDERS: Visit Provider Physician Assistant
DX: S92.352A Displaced fracture of fifth metatarsal bone, left foot, initial encounter for closed fracture (principal); X58.XXXA Exposure to other specified factors, initial encounter; Y93.9 Activity, unspecified; Y92.9 Unspecified place or not applicable; Y99.9 Unspecified external cause status
CPT/HCPCS: 28470; 73630; 99212

== ENCOUNTER 2023-02-24 13:07 | Outpatient (AMB) | payer OTHER, SELFPAY ==
[2023-02-24 13:41] VITALS: BMI 23.3
--- NOTE | 2023-02-24 13:41 | A.OFFVIS_ITS ---
Intake Vital Signs 02/24/23 13:41 Height 5 ft 5 in Weight 140 lb BMI 23.3 Intake Visit Reasons: ov- LT 5th Metatarsal fx Intake Note: Cherry a 38 year old female presents today for a follow up of left 5th metatarsal fx, DOI . Patient reports that she is a little better. States swelling comes later in the day. Finds some relief with resting and elevation. Currently her pain is intermittent and tenderness at the top of her foot. She has pain at the lateral aspect of foot with certain movements. Allergies No Known Allergies Allergy (Verified 02/24/23 13:48) HPI ov- LT 5th Metatarsal fx HPI Details 38-year-old female who returns to the [facility] today for a follow-up of left 5th metatarsal fracture. She continues to have intermittent pain and swelling throughout the day in the lateral aspect of her knee with certain movements. She also c/o tenderness at the top of her foot. She has mild improvement in her pain since the last visit. 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 Review of Systems Const All systems reviewed & are unremarkable except as noted in HPI and below Physical Exam Vital Signs: BMI result Body Mass Index 23.3 Const General: cooperative, healthy appearing, comfortable, no acute distress, well developed and alert Orientation/consciousness: patient oriented x3 HEENT Head: Yes normal to inspection, Yes normocephalic and Yes atraumatic Eyes General: appearance normal, both eyes and all related structures Resp Effort & Inspection: normal respiratory effort and able to speak in complete sentences Cardio Rate: regular rate Peripheral pulses: Peripheral pulses 2+ throughout GI Palpation (GI): Soft to palpation Skin Lesions: no lesions Rashes: no rashes Neuro General: patient oriented x3 Extrem Other: Left foot: Skin intact. There is tenderness along the shaft of the 5th metatarsal. Sensation intact. EHL intact. No pain along the mediolateral malleolus. Neurovascularly intact. Office Procedures Casting/Splints [id number] Leg Cast Application Procedure code (CPT) selection complete Results Reviewed Results Reviewed: Xrays were obtained in the office today and personally reviewed by me show stable fracture without callus formation Assessment & Plan Assessment & Plan (1) Fracture of fifth metatarsal bone of left foot: Code(s): S92.352A - Displaced fracture of fifth metatarsal bone, left foot, initial encounter for closed fracture Qualifiers: Encounter type: initial encounter Fracture alignment: displaced Fractu re type: closed Qualified Code(s): S92.352A - Displaced fracture of fifth metatarsal bone, left foot, initial encounter for closed fracture Plan Given the amount of discomfort she is experiencing especially with ambulation while wearing a boot, we did discuss the use of a cast which would completely immobilizer her and hopefully allow her foot to rest which she is interested in doing temporarily. I did explain that this may cause some temporary ankle stiffness which we can work on after the cast removal with ROM and physical therapy, therefore she was placed in a short leg cast. She should remain non weight bearing to prevent the cast from breaking see back in 4-6 weeks with cast off and new x-rays. Orders: Orders XR foot LT min 3V Today M79.672 - Pain in left foot Patient Instructions: Scribed for Oliverio Ashford PA-C, by Sloan Jordan medical cash poster, on 02/24/2023 at 1:30 PM EST. Oliverio Mcqueen PA-C, have personally reviewed and agree with the information entered by the scribe. Coding Level of Care Code Global (58759) Diagnoses Closed displaced fracture of fifth metatarsal bone of left foot, initial encounter S92.352A Encounter type: initial encounter Fracture alignment: displaced Fracture type: closed CPT Codes Casting - CPT: 62750-[id number] Leg Cast Application ([id number])
== END 2023-02-24 14:46 | disposition home or self-care (01) ==
PROVIDERS: Visit Provider Physician Assistant
DX: S92.352A Displaced fracture of fifth metatarsal bone, left foot, initial encounter for closed fracture (principal); Y99.0 Civilian activity done for income or pay; Z04.3 Encounter for examination and observation following other accident
CPT/HCPCS: 28470; 99213

== ENCOUNTER 2023-04-02 10:42 | Outpatient (AMB) | payer OTHER, SELFPAY ==
[2023-04-02 10:56] VITALS: BMI 23.3
--- NOTE | 2023-04-02 10:56 | A.OFFVIS_ITS ---
Intake Vital Signs 04/02/23 10:56 Height 5 ft 5 in Weight 140 lb BMI 23.3 Intake Visit Reasons: 4 weeks follow up Intake Note: Cherry a 37 year old female who presents today for a follow up of left 5th metatarsal fx, DOI 01/23/23. Cast off and xrays updated. Patient reports intermittent stabbing pain on the top of her foot. She states at times her toes will move involuntary. Allergies No Known Allergies Allergy (Verified 04/02/23 10:58) HPI 4 weeks follow up HPI Details 38-year-old female who returns to the [facility] today for a follow-up of left 5th metatarsal fracture, 01/23/23. She continues to have intermittent stabbing pain on the top of her foot. She also c/o occasional moving of her toes involuntarily. She is doing well otherwise and has no other concerns. 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 Review of Systems Const All systems reviewed & are unremarkable except as noted in HPI and below Physical Exam Vital Signs: BMI result Body Mass Index 23.3 Const General: cooperative, healthy appearing, comfortable, no acute distress, well developed and alert Orientation/consciousness: patient oriented x3 HEENT Head: Yes normal to inspection, Yes normocephalic and Yes atraumatic Eyes General: appearance normal, both eyes and all related structures Resp Effort & Inspection: normal respiratory effort and able to speak in complete sentences Cardio Rate: regular rate Peripheral pulses: Peripheral pulses 2+ throughout GI Palpation (GI): Soft to palpation Skin Lesions: no lesions Rashes: no rashes Neuro General: patient oriented x3 Extrem Other: Left foot: Skin intact. Mild tenderness along the shaft of the 5th metatarsal. Sensation intact. EHL intact. No pain along the mediolateral malleolus. Neurovascularly intact. Results Reviewed Results Reviewed: Xrays were obtained in the office today and personally reviewed by me show stable fracture without callus formation Assessment & Plan Assessment & Plan (1) Fracture of fifth metatarsal bone of left foot: Code(s): S92.352A - Displaced fracture of fifth metatarsal bone, left foot, initial encounter for closed fracture Qualifiers: Encounter type: subsequent encounter Fracture alignment: displaced Fracture type: closed Fracture healing: with routine healing Qualified Code(s): S92.352D - Displaced fracture of fifth metatarsal bone, left foot, subsequent encounter for fracture with routine healing Plan She was transitioned to a short walking boot weight bearing as tolerated. I did show her some exercises in the office to work on ROM and she will begin a course of physical therapy to work on ROM and strengthening. She should ween out of pérez t in the next 6-8 weeks and I will see her back in 8 weeks with new x-rays, sooner if needed. She was given a work note today to return to regular scheduled hours with continued light duty restrictions until her next appt. Orders: Orders XR foot LT min 3V 04/02/23 M79.672 - Pain in left foot PT Evaluation and Treatment 04/02/23 S92.352A - Displaced fracture of fifth metatarsal bone, left foot, initial encounter for closed fracture Patient Instructions: Scribed for Oliverio Ashford PA-C, by Sloan Jordan medical record technician, on 04/02/2023 at 10:45 AM EST. I, Oliverio Ashford PA-C, have personally reviewed and agree with the information entered by the scribe. Coding Level of Care Code Global (50456) Diagnoses Closed displaced fracture of fifth metatarsal bone of left foot with routine healing, subsequent encounter S92.352D Encounter type: subsequent encounter Fracture alignment: displaced Fracture type: closed Fracture healing: with routine healing
== END 2023-04-02 11:52 | disposition home or self-care (01) ==
PROVIDERS: Visit Provider Physician Assistant
DX: S92.352D Displaced fracture of fifth metatarsal bone, left foot, subsequent encounter for fracture with routine healing (principal)
CPT/HCPCS: 99024

== ENCOUNTER 2023-04-02 15:06 | Outpatient (REF) | payer OTHER, SELFPAY ==
--- NOTE | ~2023-04-02 | XR_ITS ---
EXAMINATION: XR FOOT, LEFT CLINICAL INFORMATION: Pain COMPARISON: Left foot radiograph from 02/24/2023 TECHNIQUE: AP, lateral, and oblique views of the left foot. FINDINGS: Redemonstration of oblique mildly displaced fracture involving the fifth metatarsal mid to distal diaphysis. Slightly increased bridging callus formation. There is increased osteopenic changes of the distal fracture fragment/fifth metatarsal head, possibly secondary to disuse. Pes planus. Spurring the dorsal midfoot. Joint spaces and alignment are otherwise maintained. Soft tissues are unremarkable. XR/XR foot LT min 3V IMPRESSION: 1. Redemonstration of oblique mildly displaced fracture involving the fifth metatarsal mid to distal diaphysis. 2. Slightly increased bridging callus formation. 3. Increased osteopenic changes of the distal fracture fragment/fifth metatarsal head, possibly secondary to disuse. 4. Pes planus.
== END 2023-04-02 15:07 | disposition home or self-care (01) ==
LOC: HO.HOSX 15:06
PROVIDERS: Visit Provider Physician Assistant
DX: S92.352D Displaced fracture of fifth metatarsal bone, left foot, subsequent encounter for fracture with routine healing (principal)
CPT/HCPCS: 73630

== ENCOUNTER 2023-05-08 11:36 | Outpatient (REF) | payer OTHER, SELFPAY | END 2023-05-08 11:37 | disposition home or self-care (01) | LOC: HO.XRAY 11:36 | PROVIDERS: PCP Physician Assistant; Visit Provider Physician Assistant | DX: M79.672 Pain in left foot (principal) | CPT/HCPCS: 73630 ==

== ENCOUNTER 2023-05-28 09:42 | Outpatient (AMB) | payer OTHER, SELFPAY ==
--- NOTE | 2023-05-28 09:51 | MHC.OFFVIS ---
Intake Vital Signs 05/28/23 09:58 Height 5 ft 5 in Weight 140 lb BMI 23.3 Intake Visit Reasons: ov- left 5th metatarsal fx w xrays Intake Note: Cherry maldonado 38 year old female presents today for a follow up of left 5th metatarsal fx, 01/23/23. Patient reports the she discontinued boot wear after a week of weight bearing. States that she was experiencing an increase of pain and swelling located at the medial aspect of ankle. She continues to attend PT, states moving slower than expected. She has no more PT sesssions and states that PT recommended that she continues. Allergies No Known Allergies Allergy (Verified 05/28/23 09:58) HPI ov- left 5th metatarsal fx w xrays HPI Details 38-year-old female who returns to the office today for a follow-up of left 5th metatarsal fracture, 01/23/23. She reports she discontinued wearing the boot after a week of weight bearing. She continues to have tenderness, pain and swelling at the medial aspect of her ankle. She is completed with her physical therapy sessions which were moving slower than expected and they recommended her that she continues with the sessions. 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 Review of Systems Const All systems reviewed & are unremarkable except as noted in HPI and below Physical Exam Vital Signs: BMI result Body Mass Index 23.3 Const General: cooperative, healthy appearing, comfortable, no acute distress, well developed and alert Orientation/consciousness: patient oriented x3 HEENT Head: Yes normal to inspection, Yes normocephalic and Yes atraumatic Eyes General: appearance normal, both eyes and all related structures Resp Effort & Inspection: normal respiratory effort and able to speak in complete sentences Cardio Rate: regular rate Peripheral pulses: Peripheral pulses 2+ throughout GI Palpation (GI): Soft to palpation Skin Lesions: no lesions Rashes: no rashes Neuro General: patient oriented x3 Extrem Other: Left foot: Skin intact. No Tenderness along the shaft of the 5th metatarsal. Sensation intact. EHL intact. No pain along the mediolateral malleolus. Neurovascularly intact. Results Reviewed Results Reviewed: Xrays were obtained in the office today and personally reviewed by me show stable fracture without callus formation Assessment & Plan Assessment & Plan (1) Fracture of fifth metatarsal bone of left foot: Code(s): S92.352A - Displaced fracture of fifth metatarsal bone, left foot, initial encounter for closed fracture Qualifiers: Encounter type: subsequent encounter Fracture alignment: displaced Fracture healing: with routine healing Fracture type: closed Qualified Code(s): S92.352D - Displaced fracture of fifth metatarsal bone, left foot, subsequent encounter for fracture with routine healing Plan She will continue working with physical therapy and a new order was placed today. She will increase activity as tolerated and if symptoms persist or worsens, patient will contact the office, otherwise follow-up as needed. Orders: Orders XR foot LT min 3V Today M79.672 - Pain in left foot PT Evaluation and Treatment Today S92.352A - Displaced fracture of fifth metatarsal bone, left foot, initial encounter for closed fracture Medications: New [Anti-pronation orthotics] Anti-pronation orthotics 1 ea 0RF pes planus M21.41 - Flat foot [pes planus] (acquired), right foot, M21.42 - Flat foot [pes planus] (acquired), left foot Patient Instructions: Scribed for Oliverio Ashford PA-C, by Sloan Jordan biomedical equipment technician, on 05/28/2023 at 9:45 AM REX. Oliverio Mcqueen PA-C, have personally reviewed and agree with the information entered by the scribe. Coding Level of Care Code Est Pt Level 3 (33368) Diagnoses Closed displaced fracture of fifth metatarsal bone of left foot with routine healing, subsequent encounter S92.352D Encounter type: subsequent encounter Fracture alignment: displaced Fracture healing: with routine healing Fracture type: closed
[2023-05-28 09:58] VITALS: BMI 23.3
== END 2023-05-28 10:06 | disposition home or self-care (01) ==
PROVIDERS: Visit Provider Physician Assistant
DX: S92.352D Displaced fracture of fifth metatarsal bone, left foot, subsequent encounter for fracture with routine healing (principal)
CPT/HCPCS: 99213

== ENCOUNTER 2023-05-28 10:06 | Outpatient (REF) | payer OTHER, SELFPAY ==
--- NOTE | ~2023-05-28 | XR_ITS ---
EXAMINATION: XR FOOT, LEFT CLINICAL INFORMATION: Pain COMPARISON: Foot radiographs 05/08/2023 TECHNIQUE: 3 views of the foot FINDINGS: Healing obliquely oriented fracture of the fifth metatarsal with some persistent lucency along the fracture margins with bridging bony calcification. Disuse osteopenia predominantly involving the fifth metatarsal. Joint spaces are maintained. No joint effusion. Soft tissues are unremarkable. XR/XR foot LT min 3V IMPRESSION: 1. Healing obliquely oriented fracture of the fifth metatarsal with some persistent lucency along the fracture margins with bridging bony calcification. 2. Disuse osteopenia predominantly involving the fifth metatarsal.
== END 2023-05-28 10:07 | disposition home or self-care (01) ==
LOC: HO.HOSX 10:06
PROVIDERS: Visit Provider Physician Assistant
DX: S92.352D Displaced fracture of fifth metatarsal bone, left foot, subsequent encounter for fracture with routine healing (principal)
CPT/HCPCS: 73630; 99212

== ENCOUNTER 2023-06-18 13:00 | Outpatient (RCR) | payer OTHER, SELFPAY ==
--- NOTE | 2023-07-14 10:53 | MHC.PT.DC ---
[facility] [place] [facility] [place] Office [place] Office [address] [phone] F: [phone] F: [phone] F: [phone] F: [phone] Physical Therapy Discharge Report Diagnosis: 5th MET FX (JOELLEN) Date of Surgery: DOI 01/25 Date of Evaluation: 04/11/23 Date of Discharge: 06/04/23 Treatments to Date: 15 Cancellations to Date: 0 No Shows to Date: 1 Discharge Status: Achieved Goals Improved Function Independent with HEP Discharge Summary: 06/18 Continue mild discomfort on stairs. Improved SLE balance and gait. Pt D/C today per plan. Pt encouraged to wear supportive footwear vs tight dress shoes or heels until pain has completely resolved. Electronically signed by: Wendy Street PT DPT Please sign and return to therapist. Thank you for your referral.
== END 2023-07-14 10:53 | disposition home or self-care (01) ==
LOC: HO.PT 13:00
PROVIDERS: Visit Provider Physician Assistant
DX: S92.352D Displaced fracture of fifth metatarsal bone, left foot, subsequent encounter for fracture with routine healing (principal)
CPT/HCPCS: 97110; 97140; 97161; 97530